=== PATIENT | male | born 1945 | race Hispanic/Latino ===

== ENCOUNTER 2024-07-18 13:12 | Emergency (ER) | payer OTHER, SELFPAY ==
[2024-07-18 13:16] VITALS: BP 202/96
[2024-07-18 13:51] LABS: % Basophils 0.8 % (0-2); % Eosinophils 0.9 % (0-6); % Immature Granulocytes 0.4 % (0-0.5); % Monocytes 6.6 % (1.7-9.3); % Neutrophils 78.3 % (42.2-75.2); Absolute Basophils 0.1 10^3/uL (0-0.2); Absolute Eosinophils 0.1 10^3/uL (0-0.7); Absolute Monocytes 0.5 10^3/uL (0.1-0.6); Absolute Neutrophils 6.1 10^3/uL (1.4-6.5); Hematocrit 48.1 % (39.0-52.0); Hemoglobin 16.5 g/dL (13.0-18.0); Mean Corp Hgb Conc. 34.3 g/dL (33.0-37.0); Mean Corpuscular Hgb 31.1 pg (27.0-31.0); Mean Corpuscular Volume 90.8 fL (80.0-94.0); Mean Platelet Volume 9.5 fL (7.4-10.4); Nucleated Red Blood Cells % 0 % (-); Platelet Count 215 10^3/uL (130-400); Red Cell Dist. Width 15.1 % (11.5-14.5); White Blood Cell Count 7.8 10^3/uL (4.8-10.8)
[2024-07-18 14:08] LABS: ALT (SGPT) 28 U/L (0-50); AST (SGOT) 28 U/L (17-59); Albumin 5.2 g/dl (3.5-5.0); Alkaline Phosphatase 78 U/L (38-126); Blood Urea Nitrogen 20 mg/dl (9-20); Calcium 9.7 mg/dl (8.4-10.2); Carbon Dioxide 23 mmol/L (22-30); Chloride 98 mmol/L (98-107); Glucose 98 mg/dl (70-99); Potassium 3.8 mmol/L (3.5-5.1); Sodium 139 mmol/L (135-145); Total Bilirubin 0.8 mg/dl (0.2-1.3); Total Protein 7.6 g/dl (6.3-8.2); eGFR > 60.00
[2024-07-18 14:13] LABS: Troponin I < 0.012 ng/ml
--- NOTE | 2024-07-18 14:13 | ED.GENMED ---
History of Present Illness
General
Chief Complaint: Blood Pressure Problem
Source: patient and family
Exam Limitations: none
Time Seen by Provider: 07/18/24 13:52
Nursing documentation reviewed up to this point in time: agreed with
History of Present Illness
History of Present Illness:
78-year-old past medical history of hypertension hyperlipidemia, diabetes presenting to the emergency department with concerns of high blood pressure found that his primary care doctor. Denies any symptoms at this time does take multiple blood
pressure medications took both this morning. Takes atenolol at night denies missing a dose last night.
Review of Systems
Review of Systems
Allergies reviewed?: Yes
All Other Systems: ROS reviewed and negative except as documented in HPI and ROS
Phy Exam
Physical Exam
Physical Exam:
GENERAL: Alert , in no apparent distress
EYE: pupils equal and reactive
NECK: Supple, no significant adenopathy.
ENT: o/p clr, mmm.
CARDIAC: Regular rate and rhythm .
LUNGS: Clear breath sounds bilaterally, no acute respiratory distress, no wheezes/rales/rhonchi
ABDOMEN: Soft, without focal tenderness, no r/g, no cvat
NEUROLOGICAL: Alert and oriented, no focal neuro deficits
SKIN: Warm and dry, skin intact.
MUSCULOSKELETAL: No edema, well perfused.
PSYCH: Normal and appropriate interaction.
Course
Orders/Labs/Results
Orders:
Orders
07/18/24 13:19
Electrocardiogram (*1) Urgent
Reason for Study: Hypertension, Benign
EKG- Treatment ONCE
07/18/24 13:30
Complete Blood Count/With Diff Urgent
Comprehensive Metabolic Panel Urgent
Troponin I Urgent
07/18/24 14:04
HydrALAZINE [Apresoline] 50 mg PO NOW STA
Abnormal Lab Results
07/18/24
13:30
MCH 31.1 H pg
(27.0-31.0)
RDW 15.1 H %
(11.5-14.5)
Absolute Lymphs (auto) 1.0 L 10^3/uL
(1.2-3.4)
Neutrophils % 78.3 H %
(42.2-75.2)
Lymphocytes % 13.0 L %
(20.5-51.1)
Albumin 5.2 H g/dl
(3.5-5.0)
07/18/24 13:30
07/18/24 13:30
Vital Signs
Initial and Last Documented VS:
Initial Vital Signs
Temp Pulse Resp BP Pulse Ox
98.0 F 61 16 202/96 98
07/18/24 13:16 07/18/24 13:16 07/18/24 13:16 07/18/24 13:16 07/18/24 13:16
Last Documented Vital Signs
Temp Pulse Resp BP Pulse Ox
98.0 F 76 18 176/76 99
07/18/24 13:16 07/18/24 14:48 07/18/24 14:48 07/18/24 14:48 07/18/24 14:48
MDM/Problems Addressed
MDM/Problems Addressed:
78-year-old male presenting to the emergency department today with concerns of elevated blood pressure. Patient claims he is asymptomatic otherwise vital signs are normal labs unremarkable troponin negative. EKG nonischemic. Patient without
complaints for multiple hours in the ER he was given additional dose of hydralazine he was advised to increase his hydralazine to 50 mg 4 times daily and follow close with the primary care doctor and cardiology for further management potential
addition of blood pressure medication.
*Critical Care Note
Total Time (30-74mins, 75-104mins- exclusive of procedures): Not Applicable
ED Attending Note
-
Portions of this chart may have been created with voice recognition software.� Occasional wrong word or��sound alike� substitutions may have occurred due to the inherent limitations of voice recognition software.
Discharge Plan
Departure
Patient Disposition: Home (Routine Discharge)
Date of Disposition: 07/18/24
Time of Disposition: 15:06
Patient with high blood pressure during this ER visit?: Yes
Condition: Good
Covid-19: Not Applicable
Discharge Problem:
High blood pressure
Instructions: BLOOD PRESSURE
Referrals:
Yaneth Aceves MD [Family Provider] -
Rolan Meredith MD [Active] - Follow up in 5-7 days
Activity Restrictions/Additional Instructions:
You came to the emergency department today with concerns of elevated blood pressure. Here you had reassuring assessment. You are given an additional dose of hydralazine with improvement blood pressure. Please follow close with the primary care
doctor and cardiology for further management moving forward. Return for any worsening, new or concerning symptoms.
Interventions
Interventions:
*Risk Screen - Suicide Last Done: 07/18/24 13:16
*Neglect/Abuse Screening Last Done: 07/18/24 13:16
ED- Cardiac Assessment Last Done: 07/18/24 14:25
ED- Neurological Assessment Last Done: 07/18/24 14:25
ED- Pulmonary Assessment Last Done: 07/18/24 14:25
Discharge Date and Time
Print Language: ALBAN[place]
[2024-07-18] MEDS: APRESOLINE 50 MG PO (14:17)
[2024-07-18 14:48] VITALS: BP 176/76
== END 2024-07-18 15:39 | disposition home or self-care (01) ==
LOC: EMR 13:12
PROVIDERS: EMERGENCY PHYSICIAN Emergency Medicine; FAMILY PHYSICIAN Internal Medicine
DX: I10 Essential (primary) hypertension (principal); E78.5 Hyperlipidemia, unspecified; E11.9 Type 2 diabetes mellitus without complications; Z79.899 Other long term (current) drug therapy
CPT/HCPCS: 99284; 80053; 84484; 85025; 93005